=== PATIENT | male | born 1945 | race Caucasian/White ===

== ENCOUNTER 2020-06-12 13:25 | Observation (INO) | payer MEDICARE, OTHER ==
[2020-06-08 11:50] LABS: BASOPHILS # (AUTO) 0.1 (0.0-0.1); BASOPHILS % 0.7 % (0.0-1.0); EOSINOPHILS # (AUTO) 0.3 (0.0-0.4); EOSINOPHILS % 3.8 % (0.0-6.0); HEMATOCRIT 46.1 % (38.2-49.6); HEMOGLOBIN 15.4 g/dL (14.0-18.0); LYMPHOCYTES # (AUTO) 1.6 (1.0-3.2); LYMPHOCYTES % 21.5 % (18.0-39.1); MEAN CORPUSCULAR HGB CONC 33.4 g/dL (31-35); MEAN CORPUSCULAR VOLUME 89.7 fL (81-99); MONOCYTES # (AUTO) 0.6 (0.2-0.8); MONOCYTES % 8.1 % (4.4-11.3); NEUTROPHILS # (AUTO) 4.9 (2.1-6.9); NEUTROPHILS % 65.6 % (38.7-80.0); PLATELET COUNT 205 x10e3/uL (140-360); RED BLOOD COUNT 5.14 x10e6/uL (4.3-5.7); RED CELL DISTRIBUTION WIDTH 13.7 % (11.7-14.4)
[2020-06-08 12:10] LABS: ALBUMIN 3.7 g/dL (3.5-5.0); ALBUMIN/GLOBULIN RATIO 1.2 (0.8-2.0); ANION GAP 15.1 mmol/L (8-16); CALCIUM 8.9 mg/dL (8.4-10.2); CREATININE, SERUM 1.41 mg/dL (0.72-1.25); POTASSIUM 4.1 mmol/L (3.5-5.1)
[~2020-06-12] VITALS: Ht 171.4 cm; Wt 129.3 kg
[2020-06-12] VITALS (15 sets, daily range): BP systolic 103–138; BP diastolic 53–75
[~2020-06-12 13:25] MED LIST: ALLOPURINOL300 MG PO; AMLODIPINE BESYL5 MG PO; ASPIRIN EC81 MG PO; ATORVASTATIN CA10 MG PO; BASAGLAR K100 UNIT/1 SC; CITALOPRAM HBR20 MG PO; INSPRA50 MG PO; LASIX80 MG PO; METOPROLOL TAR100 MG PO; NITROGLYCERIN0.4 MG SL; NOVOLOG100 UNIT/1 SC; POTASSIUM CITR10 MEQ PO; PRILOSEC OTC20 MG PO
[2020-06-12] MEDS ORDERED: DIPHENHYDRAMINE HCL 25 MG CAP ONE (14:03)
[2020-06-12] MEDS ORDERED: ALPRAZOLAM 0.5 MG TAB ONE (14:03)
[2020-06-12] MEDS ORDERED: MIDAZOLAM HCL 2 MG/2 ML VIAL ONE (14:14)
[2020-06-12] MEDS ORDERED: FENTANYL CITRATE/PF 100MCG/2 ML INJ ONE (14:15)
[2020-06-12] MEDS ORDERED: LIDOCAINE HCL 2% LOCAL 20 ML VIAL ONE (14:15)
[2020-06-12] MEDS ORDERED: SODIUM CHLORIDE 0.9% 1000ML 1,000 ML ONE (14:15)
[2020-06-12] MEDS ORDERED: HEPARIN SOD/SOD CHLORIDE 2,000 ML ONE (14:15)
[2020-06-12] MEDS ORDERED: IOPAMIDOL 370 MG/ML 200 ML INFUS..BTL INJ ONE (14:15)
[2020-06-12] MEDS ORDERED: BIVALRIUDIN 250 MG/VIAL VIAL IV ONE (15:23)
[2020-06-12] MEDS ORDERED: SODIUM CHLORIDE 0.9% 50ML 50 ML ONE ×2 (15:24→15:29)
[2020-06-12] MEDS ORDERED: ADENOSINE 6MG/2ML 1 ML ONE (15:28)
[2020-06-12] MEDS ORDERED: ONDANSETRON HCL INJ 2MG/ML 2ML 2 MG/ML VIAL IV PRN (15:45)
[2020-06-12] MEDS ORDERED: NITROGLYCERIN 0.4 MG SUBL SL PRN (15:45)
[2020-06-12] MEDS ORDERED: HYDRALAZINE HCL 20 MG/ML VIAL IV PRN (15:45)
[2020-06-12] MEDS ORDERED: DEXTROSE 50% SYRINGE 50 ML IV PRN (15:45)
[2020-06-12] MEDS ORDERED: ACETAMINOPHEN 325 MG TAB PO PRN (15:45)
[2020-06-12] MEDS ORDERED: MORPHINE SULFATE INJ 4 MG/ML INJ 1ML IV PRN (15:45)
[2020-06-12] MEDS ORDERED: HYDROCODONE/APAP 5MG-325MG TAB PO PRN (15:45)
[2020-06-12] MEDS ORDERED: ASPIRIN 325 MG TAB ONE (15:55)
[2020-06-12] MEDS ORDERED: PRASUGREL 10 MG TAB ONE (15:55)
[2020-06-12] MEDS: INSULIN REGULAR, HUMAN 100 UNIT/1 ML 3ML VIAL SQ SCH ×2 (16:30→21:00)
[2020-06-12] MEDS: POTASSIUM CITRATE ER 10 MEQ TAB PO SCH (17:00)
[2020-06-12] MEDS: METOPROLOL TARTRATE 50 MG TAB PO SCH (17:00)
[2020-06-12] MEDS: INSULIN LISPRO 100 UNIT/1 ML 3ML VIAL SQ SCH (17:00)
[2020-06-12] MEDS: AMLODIPINE BESYLATE 5 MG TAB PO SCH (17:00)
[2020-06-12] MEDS ORDERED: SODIUM CHLORIDE 0.9% 250ML 250 ML IV ONE (18:30)
[2020-06-12] MEDS ORDERED: CITALOPRAM HYDROBROMIDE 20 MG TAB PO SCH (21:00)
[2020-06-12] MEDS ORDERED: ZOLPIDEM TARTRATE 5 MG TAB PO PRN (21:00)
[2020-06-12] MEDS ORDERED: ASPIRIN 81 MG ENTERIC COATED PO SCH (21:00)
[2020-06-13] VITALS: BP 125/66
[2020-06-13 04:00] VITALS: BP 129/72
[2020-06-13 04:55] LABS: BASOPHILS % 0.5 % (0.0-1.0); EOSINOPHILS # (AUTO) 0.3 (0.0-0.4); HEMATOCRIT 42.7 % (38.2-49.6); HEMOGLOBIN 14.3 g/dL (14.0-18.0); LYMPHOCYTES # (AUTO) 1.4 (1.0-3.2); LYMPHOCYTES % 16.6 % (18.0-39.1); MEAN CORPUSCULAR HEMOGLOBIN 29.9 pg (28-32); MEAN CORPUSCULAR HGB CONC 33.5 g/dL (31-35); MEAN CORPUSCULAR VOLUME 89.1 fL (81-99); MONOCYTES # (AUTO) 0.8 (0.2-0.8); MONOCYTES % 9.4 % (4.4-11.3); NEUTROPHILS # (AUTO) 5.8 (2.1-6.9); NEUTROPHILS % 70.1 % (38.7-80.0); PLATELET COUNT 193 x10e3/uL (140-360); RED BLOOD COUNT 4.79 x10e6/uL (4.3-5.7); RED CELL DISTRIBUTION WIDTH 13.6 % (11.7-14.4)
[2020-06-13 05:18] LABS: ANION GAP 13.8 mmol/L (8-16); CALCIUM 8.8 mg/dL (8.4-10.2); CREATININE, SERUM 1.22 mg/dL (0.72-1.25); POTASSIUM 3.8 mmol/L (3.5-5.1)
[2020-06-13] MEDS: INSULIN REGULAR, HUMAN 100 UNIT/1 ML 3ML VIAL SQ SCH (07:30)
[2020-06-13] MEDS ORDERED: PANTOPRAZOLE SOD 40 MG TABEC PO SCH (07:30)
[2020-06-13 08:00] VITALS: BP 120/68
[2020-06-13] MEDS: INSULIN LISPRO 100 UNIT/1 ML 3ML VIAL SQ SCH (08:00)
[2020-06-13] MEDS: POTASSIUM CITRATE ER 10 MEQ TAB PO SCH (08:31)
[2020-06-13] MEDS: METOPROLOL TARTRATE 50 MG TAB PO SCH (08:31)
[2020-06-13] MEDS: AMLODIPINE BESYLATE 5 MG TAB PO SCH (08:42)
[2020-06-13 08:59] VITALS: BP 120/68
[2020-06-13] MEDS ORDERED: FUROSEMIDE 40 MG TAB PO SCH (09:00)
[2020-06-13] MEDS ORDERED: EPLERONONE 25 MG PO SCH (09:00)
[2020-06-13] MEDS ORDERED: CLOPIDOGREL BISULFATE 75 MG TAB PO SCH (09:00)
[2020-06-13] MEDS ORDERED: ALLOPURINOL 300 MG TAB PO SCH (09:00)
[2020-06-13] MEDS ORDERED: ATORVASTATIN 10 MG TAB PO SCH (09:00)
[2020-06-13] MEDS ORDERED: ASPIRIN 325 MG TAB PO SCH (09:00)
[2020-06-13] MEDS ORDERED: CLOPIDOGREL75 MG PO (09:33)
== END 2020-06-13 10:20 | disposition home or self-care (01) ==
LOC: CATH LAB 13:25 → CATH LAB V 15:35 → IMCU 19:30
PROVIDERS: ADMIT Internal Medicine Interventional Cardiology; ATTEND Internal Medicine Interventional Cardiology
DX: I25.119 Atherosclerotic heart disease of native coronary artery with unspecified angina pectoris (principal); R94.39 Abnormal result of other cardiovascular function study; Z20.822 Contact with and (suspected) exposure to COVID-19; Z01.818 Encounter for other preprocedural examination
CPT/HCPCS: 93459; C9604; 36415; 76937; 80048; 80053; 82948; 83880; 85025; 92937; 93005; 93455; 99152; 99153; C1725; C1874; C1894; G0378; J0153; J0583; J2001; J2250; J3010; J7030; Q9967; U0002

== ENCOUNTER 2024-02-26 07:50 | Day surgery (SDC) | payer MEDICARE, OTHER ==
[2024-02-23 08:38] LABS: BASOPHILS # (AUTO) 0.1 (0.0-0.1); BASOPHILS % 0.7 % (0.0-1.0); EOSINOPHILS # (AUTO) 0.2 (0.0-0.4); EOSINOPHILS % 3.4 % (0.0-6.0); HEMATOCRIT 41.8 % (38.2-49.6); HEMOGLOBIN 14.1 g/dL (14.0-18.0); LYMPHOCYTES # (AUTO) 1.5 (1.0-3.2); LYMPHOCYTES % 21.8 % (18.0-39.1); MEAN CORPUSCULAR HEMOGLOBIN 30.8 pg (28-32); MEAN CORPUSCULAR HGB CONC 33.7 g/dL (31-35); MEAN CORPUSCULAR VOLUME 91.3 fL (81-99); MONOCYTES # (AUTO) 0.5 (0.2-0.8); MONOCYTES % 7.9 % (4.4-11.3); NEUTROPHILS # (AUTO) 4.5 (2.1-6.9); NEUTROPHILS % 65.9 % (38.7-80.0); PLATELET COUNT 191 x10e3/uL (140-360); RED BLOOD COUNT 4.58 x10e6/uL (4.3-5.7); RED CELL DISTRIBUTION WIDTH 13.7 % (11.7-14.4); WHITE BLOOD COUNT 6.83 x10e3/uL (4.8-10.8)
[2024-02-23 09:02] LABS: INR 1.63; PROTHROMBIN TIME 20.2 seconds (11.9-14.5)
[2024-02-23 09:13] LABS: ALBUMIN 3.8 g/dL (3.5-5.0); ALBUMIN/GLOBULIN RATIO 1.3 (0.8-2.0); ANION GAP 15.8 mmol/L (8-16); BILIRUBIN,TOTAL 1.2 mg/dL (0.2-1.2); CALCIUM 9.1 mg/dL (8.4-10.2); CREATININE, SERUM 1.05 mg/dL (0.72-1.25); POTASSIUM 3.8 mmol/L (3.5-5.1); TOTAL PROTEIN 6.7 g/dL (6.5-8.1)
[2024-02-26] VITALS (13 sets, daily range): BP systolic 109–155; BP diastolic 62–85; PULSE 60–72; RESP 12–17; TEMP 97.4–97.5; O2SAT 100
[~2024-02-26] VITALS: Ht 171.4 cm; Wt 119.3 kg
[~2024-02-26 07:50] MED LIST changes: +ADMELOG SO100 UNIT/1; +CLOPIDOGREL75 MG PO; +OLMESARTAN MEDO40 MG; +XARELTO10 MG PO
[2024-02-26] MEDS ORDERED: VERAPAMIL HCL 2.5 MG/ML 2 ML VIAL ONE (07:51)
[2024-02-26] MEDS ORDERED: HEPARIN SOD (PORCINE) 1000 UNIT/ML 30ML ONE (07:51)
[2024-02-26] MEDS ORDERED: SODIUM CHLORIDE 0.9% 1000ML 1,000 ML ONE (07:51)
[2024-02-26] MEDS ORDERED: LIDOCAINE HCL 2% LOCAL 20 ML VIAL ONE (07:51)
[2024-02-26] MEDS ORDERED: IOPAMIDOL 370 MG/ML 100 ML INFUS..BTL INJ ONE (07:51)
[2024-02-26] MEDS ORDERED: HEPARIN SOD/SOD CHLORIDE 2,000 ML ONE (07:51)
[2024-02-26] MEDS ORDERED: NITROGLYCERIN/D5W 200 MCG/ML 250 ML ONE (07:52)
[2024-02-26] MEDS: DIPHENHYDRAMINE HCL 25 MG CAP ONE (08:25)
[2024-02-26] MEDS ORDERED: MIDAZOLAM HCL 2 MG/2 ML VIAL ONE (09:16)
[2024-02-26] MEDS ORDERED: FENTANYL CITRATE/PF 100MCG/2 ML INJ ONE (09:17)
== END 2024-02-26 14:00 | disposition home or self-care (01) ==
LOC: CATH LAB 07:50
PROVIDERS: ATTEND Internal Medicine
DX: I25.810 Atherosclerosis of coronary artery bypass graft(s) without angina pectoris (principal); I48.91 Unspecified atrial fibrillation; I11.0 Hypertensive heart disease with heart failure; I50.9 Heart failure, unspecified; I25.2 Old myocardial infarction; Z95.810 Presence of automatic (implantable) cardiac defibrillator; Z95.1 Presence of aortocoronary bypass graft; J44.9 Chronic obstructive pulmonary disease, unspecified; E11.9 Type 2 diabetes mellitus without complications; E78.00 Pure hypercholesterolemia, unspecified; Z01.812 Encounter for preprocedural laboratory examination; Z79.82 Long term (current) use of aspirin; Z79.4 Long term (current) use of insulin; Z79.02 Long term (current) use of antithrombotics/antiplatelets; Z79.899 Other long term (current) drug therapy; Z68.39 Body mass index [BMI] 39.0-39.9, adult; Z82.49 Family history of ischemic heart disease and other diseases of the circulatory system; Z83.3 Family history of diabetes mellitus
CPT/HCPCS: 36415 ×2; 76937; 80053; 82948; 85025; 85610; 93459; C1894; J1644; J2003; J2250; J3010; J7030; Q9967; 99152; 99153